=== PATIENT | male | born 1965 | race Caucasian/White ===

== ENCOUNTER 2019-03-04 06:26 | Day surgery (SDC) | payer OTHER ==
[2019-03-04] MEDS ORDERED: PROPOFOL 80 ML (07:35)
== END 2019-03-04 15:39 | disposition home or self-care (01) ==
LOC: GIL 06:26
DX: Z12.11 Encounter for screening for malignant neoplasm of colon (principal); D12.5 Benign neoplasm of sigmoid colon; K64.8 Other hemorrhoids; K64.4 Residual hemorrhoidal skin tags; K21.0 Gastro-esophageal reflux disease with esophagitis; K29.60 Other gastritis without bleeding
CPT/HCPCS: 43239; 88305